=== PATIENT | male | born 1965 ===

== ENCOUNTER → 2016-08-31 | Outpatient (CLI) | payer BC, OTHER ==
[2016-08-31 20:06] LABS: Basophils # (A) 0.1 k/uL (0-0.2); Basophils % (A) 1 %; CH 31.7; CHCM 34.6; Eosinophils # (A) 0.2 k/uL (0-0.7); Eosinophils % (A) 3 %; HCT 46.4 % (39.0-53.0); HDW 2.47; HGB 15.9 gm/dL (13.0-17.5); Luc # (Auto) 0.17; Luc % (Auto) 2; Lymphocytes # (A) 2.7 k/uL (1.0-4.8); Lymphocytes % (A) 37 %; MCH 31.6 pg (25.0-35.0); MCHC 34.3 g/dL (31.0-37.0); MCV 92.2 fL (80.0-100.0); Mean Platelet Volume 7.3; Monocytes # (A) 0.5 k/uL (0-1.0); Monocytes % (A) 6 %; Neutrophils # (A) 3.8 k/uL (1.3-7.7); Neutrophils % (A) 52 %; RBC 5.03 m/uL (4.30-5.90); RDW 12.8 % (11.5-15.5); WBC 7.4 k/uL (3.8-10.6); WBC (Perox) 7.51
[2016-08-31 20:33] LABS: ALT 39 U/L (21-72); AST 26 U/L (17-59); Alkaline Phosphatase 66 U/L (38-126); Anion Gap 11 mmol/L; Blood Urea Nitrogen 14 mg/dL (9-20); Calcium 9.6 mg/dL (8.4-10.2); Carbon Dioxide 27 mmol/L (22-30); Chloride 105 mmol/L (98-107); Glucose 79 mg/dL (74-99); Non-African American GFR(MDRD) >60 (>60 ml/min/1.73 sqM); Potassium 4.4 mmol/L (3.5-5.1); Sodium 143 mmol/L (137-145); Total Bilirubin 0.6 mg/dL (0.2-1.3); Total Protein 7.6 g/dL (6.3-8.2)
[2016-08-31 20:52] LABS: Erythrocyte Sedimentation Rate 2 mm/hr (0-15)
== END | disposition home or self-care (01) ==
LOC: MMGSC 15:39
PROVIDERS: ATTEND Family Medicine
DX: M79.1 Myalgia (principal); M79.89 Other specified soft tissue disorders
CPT/HCPCS: 36415; 80053; 85025; 85652